=== PATIENT | female | born 1995 | race Caucasian/White ===

== ENCOUNTER 2018-04-24 00:30 | Inpatient (IN) ==
[2018-04-24 01:24] LABS: Amorphous Crystals,Urine Moderate /HPF (Few); Apearance,Urine CLOUDY (Clear); Bilirubin,Urine Negative (Negative); Blood, Urine Negative (Negative); Glucose,Urine (UA) Negative (Negative); Ketones,Urine 20 mg/dL (Negative); Nitrite,Urine Negative (Negative); Protein,Urine Negative; RBC,Urine 1 /HPF (0-4); Squamous Epithelial Cell,Urine Occasional /HPF (0-10); Urine Color Yellow (Yellow); Urine Specific Gravity 1.009 (1.001-1.035); Urine Urobilinogen < 2.0 EU/DL (0.2-1.0); WBC,Urine 1 /HPF (0-6)
[2018-04-24] MEDS ORDERED: BETAMETH SODIUM PHOS/ACETATE 30 MG/5 ML VIAL IM SCH (02:00)
[2018-04-24] MEDS: LACTATED RINGERS 1,000 ML IV SCH ×4 (02:15→21:07)
[2018-04-24] MEDS: NIFEdipine 10 MG CAPSULE PO SCH ×3 (02:22→10:11)
[2018-04-24] MEDS: ALUMINUM/MAGNES/SIMETH MAX STR 30 ML UDCUP PO PRN (03:37)
[2018-04-24] MEDS ORDERED: BETAMETH SODIUM PHOS/ACETATE 30 MG/5 ML VIAL IM ONE (15:16)
[2018-04-24] MEDS ORDERED: ONDANSETRON 4 MG/2 ML VIAL IV PRN ×2 (15:17→21:49)
[2018-04-24] MEDS ORDERED: MEPERIDINE 50 MG/1 ML VIAL IV PRN (15:17)
[2018-04-24] MEDS ORDERED: BUTORPHANOL 2 MG/ML VIAL IV PRN (15:17)
[2018-04-24] MEDS ORDERED: LACTATED RINGERS 1,000 ML IV SCH ×2 (15:30→22:00)
[2018-04-24] MEDS ORDERED: OXYTOCIN/LR 20 UNIT/1,000 ML BAG IV SCH (15:30)
[2018-04-24 16:07] LABS: Basophils % 0.1 % (0.0-0.8); Hematocrit 32.8 VOL% (35.7-47.0); Hemoglobin 11.4 GM/DL (12.0-16.0); Immature Granulocytes % 0.5 %; Immature Granulocytes Absolute 0.04 #; Lymphocytes # 1.3 10*3/uL (1.4-4.0); Lymphocytes % 15.2 % (21.3-54.2); Mean Corpuscular HGB Conc 34.8 GM/DL (32-36); Mean Corpuscular Hemoglobin 29 PG (27-34); Mean Corpuscular Volume 84.3 FL (87-102); Mean Platelet Volume 10.7 FL (9.6-12.0); Monocytes # 0.3 10*3/uL (0.11-0.8); Monocytes % 3.7 % (1.7-12.7); Neutrophils % 80.5 % (38.7-73.9); Platelet Count 240 T/CUMM (130-400); Red Blood Count 3.89 MC/CUMM (3.8-5.5); Red Cell Distribution Width 12.8 % (9.3-17.3); White Blood Count 8.7 T/CUMM (4-12)
[2018-04-24] MEDS ORDERED: AMPICILLIN INJ 2,000 MG in SODIUM CHLORIDE 0.9% 100 ML IV SCH (19:00)
[2018-04-24 20:40] LABS: HIV Antigen/Antibody Result Nonreactive (Nonreactive); Hepatitis B Surface Ag Quant 0.32 Index; Hepatitis B Surface Ag Result Negative (Negative)
[2018-04-24] MEDS ORDERED: CITRIC ACID/SODIUM CITRATE 30 ML UDCUP PO ONE (20:52)
[2018-04-24] MEDS ORDERED: FAMOTIDINE 20 MG/2 ML VIAL IV ONE (20:52)
[2018-04-24] MEDS ORDERED: TISSUE ADHESIVE 1 EACH APPLICATOR TOP ONE (21:07)
[2018-04-24] MEDS ORDERED: OXYTOCIN/LR 20 UNIT/1,000 ML BAG IV ONE (21:49)
[2018-04-24] MEDS ORDERED: SIMETHICONE CHEW 80 MG TABLET PO PRN (21:49)
[2018-04-24] MEDS ORDERED: ACETAMINOPHEN 325 MG TABLET PO PRN (21:49)
[2018-04-24 22:23] LABS: Cord Arterial Blood HCO3 24.9 MMOL/L
[2018-04-24 22:26] LABS: Cord Venous Blood HCO3 22.4 MMOL/L; Cord Venous Blood PCO2 38.6 MMHG; Cord Venous Blood PO2 32.5 MMHG
[2018-04-24] MEDS ORDERED: RHO(D) IMMUNE GLOBULIN 300 MCG SYRINGE IM ONE (22:30)
[2018-04-24] MEDS ORDERED: MEPERIDINE 25 MG/1 ML VIAL ONE (23:07)
[2018-04-24] MEDS ORDERED: PROPOFOL 200 MG/20 ML VIAL IV ONE (23:19)
[2018-04-24] MEDS ORDERED: BUPIVACAINE SPINAL 0.75% 2 ML AMP SPINAL ONE (23:19)
[2018-04-24] MEDS ORDERED: PROMETHAZINE 25 MG/1 ML VIAL ONE (23:20)
[2018-04-24] MEDS ORDERED: PHENYLEPHRINE 1 MG/10 ML SYRINGE IV ONE (23:20)
[2018-04-24] MEDS ORDERED: MORPHINE 10 MG/10 ML VIAL ONE (23:20)
[2018-04-24] MEDS ORDERED: ePHEDrine 50 MG/ML AMP ONE (23:20)
[2018-04-25] MEDS: IBUPROFEN 800 MG TABLET PO PRN ×2 (01:41→16:26)
[2018-04-25] MEDS ORDERED: diphenhydrAMINE 50 MG/1 ML VIAL IV ONE (02:00)
[2018-04-25] MEDS: ceFAZolin 1,000 MG in SYRINGE 1 EACH IV SCH ×2 (05:06→12:56)
[2018-04-25 07:55] LABS: Basophils % 0.1 % (0.0-0.8); Hematocrit 28.4 VOL% (35.7-47.0); Hemoglobin 9.5 GM/DL (12.0-16.0); Immature Granulocytes % 0.9 %; Mean Corpuscular HGB Conc 33.5 GM/DL (32-36); Mean Corpuscular Hemoglobin 29 PG (27-34); Mean Corpuscular Volume 86.3 FL (87-102); Mean Platelet Volume 11.6 FL (9.6-12.0); Monocytes % 8.5 % (1.7-12.7); Neutrophils # 12.9 10*3/uL (1.4-7.4); Neutrophils % 82.5 % (38.7-73.9); Platelet Count 216 T/CUMM (130-400); Red Blood Count 3.29 MC/CUMM (3.8-5.5); Red Cell Distribution Width 12.8 % (9.3-17.3); White Blood Count 15.6 T/CUMM (4-12)
[2018-04-25 07:56] LABS: Immature Granulocytes Absolute 0.14 #; Lymphocytes # 1.3 10*3/uL (1.4-4.0); Monocytes # 1.3 10*3/uL (0.11-0.8)
[2018-04-25] MEDS: DOCUSATE SODIUM 100 MG CAPSULE PO SCH ×2 (09:34→21:20)
[2018-04-25] MEDS: MULTIVITAMIN (PRENATAL) TABLET PO SCH (09:34)
[2018-04-25] MEDS: MAGNESIUM HYDROXIDE SUSP 30 ML UDCUP PO PRN (16:30)
[2018-04-25] MEDS: ACETAMINOPHEN/CODEINE 300-30 MG TABLET PO PRN (21:19)
[2018-04-25] MEDS: ALUMINUM/MAGNES/SIMETH MAX STR 30 ML UDCUP PO PRN (22:15)
[2018-04-26] MEDS: MULTIVITAMIN (PRENATAL) TABLET PO SCH (08:14)
[2018-04-26] MEDS: MAGNESIUM HYDROXIDE SUSP 30 ML UDCUP PO PRN (08:14)
[2018-04-26] MEDS: DOCUSATE SODIUM 100 MG CAPSULE PO SCH ×2 (08:14→20:56)
[2018-04-26] MEDS: ACETAMINOPHEN/CODEINE 300-30 MG TABLET PO PRN ×2 (11:26→20:58)
[2018-04-27 08:02] VITALS: BP 127/81
[2018-04-27] MEDS ORDERED: DIPH/TET/ACEL PERT BOOSTER VACCINE 0.5 ML VIAL IM ONE (09:11)
[2018-04-27] MEDS: MULTIVITAMIN (PRENATAL) TABLET PO SCH (09:20)
[2018-04-27] MEDS: DOCUSATE SODIUM 100 MG CAPSULE PO SCH (09:20)
[2018-04-27] MEDS: MAGNESIUM HYDROXIDE SUSP 30 ML UDCUP PO PRN (09:20)
== END 2018-04-27 21:30 | disposition home or self-care (01) | DRG 766 ==
LOC: N.LDOUT 00:30 → N.LD 00:33 → N.OB 04-25 16:18
PROVIDERS: ADMIT Obstetrics & Gynecology; ATTEND Obstetrics & Gynecology
PROC: LDCSECT (ICD-10-PCS; 2018-04-24 22:00)